=== PATIENT | female | born 1930 | race Caucasian/White ===

== ENCOUNTER → 2017-02-07 | Outpatient (CLI) | payer MEDICARE, OTHER ==
[~2017-02-07] MED LIST: ENALAPRIL MALEAT5 M1 PO; HYDROCHLOROTHIA25 M2 PO; HYDROCODONE-AP1 EAC6 PO; METOPROLOL SUCC50 MG PO; PROTONIX40 M1 PO
== END ==
LOC: M.WC 00:05
DX: T81.89XD Other complications of procedures, not elsewhere classified, subsequent encounter (principal); I10 Essential (primary) hypertension; I48.91 Unspecified atrial fibrillation; Z95.0 Presence of cardiac pacemaker; Z86.12 Personal history of poliomyelitis; Z87.891 Personal history of nicotine dependence; Z90.49 Acquired absence of other specified parts of digestive tract; Y83.8 Other surgical procedures as the cause of abnormal reaction of the patient, or of later complication, without mention of misadventure at the time of the procedure

== ENCOUNTER → 2017-02-28 | Outpatient (CLI) | payer MEDICARE, OTHER | LOC: M.WC 08:47 | DX: T81.89XD Other complications of procedures, not elsewhere classified, subsequent encounter (principal); I10 Essential (primary) hypertension; I48.91 Unspecified atrial fibrillation; L84 Corns and callosities; Z95.0 Presence of cardiac pacemaker; Z87.891 Personal history of nicotine dependence; Y83.8 Other surgical procedures as the cause of abnormal reaction of the patient, or of later complication, without mention of misadventure at the time of the procedure ==

== ENCOUNTER → 2017-03-14 | Outpatient (CLI) | payer MEDICARE, OTHER | LOC: M.WC 05:27 | DX: T81.89XD Other complications of procedures, not elsewhere classified, subsequent encounter (principal); I10 Essential (primary) hypertension; I48.91 Unspecified atrial fibrillation; Z95.0 Presence of cardiac pacemaker; Z87.891 Personal history of nicotine dependence; Y83.8 Other surgical procedures as the cause of abnormal reaction of the patient, or of later complication, without mention of misadventure at the time of the procedure ==

== ENCOUNTER → 2017-03-21 | Outpatient (CLI) | payer MEDICARE, OTHER | LOC: M.WC 01:26 | DX: T87.89 Other complications of amputation stump (principal); I10 Essential (primary) hypertension; G90.09 Other idiopathic peripheral autonomic neuropathy; I48.91 Unspecified atrial fibrillation; Z87.891 Personal history of nicotine dependence; Z90.49 Acquired absence of other specified parts of digestive tract; Z95.0 Presence of cardiac pacemaker; Z86.12 Personal history of poliomyelitis; Y83.5 Amputation of limb(s) as the cause of abnormal reaction of the patient, or of later complication, without mention of misadventure at the time of the procedure ==

== ENCOUNTER → 2017-04-04 | Outpatient (CLI) | payer MEDICARE, OTHER | LOC: M.WC 03-28 03:33 | DX: T81.89XD Other complications of procedures, not elsewhere classified, subsequent encounter (principal); G90.09 Other idiopathic peripheral autonomic neuropathy; I10 Essential (primary) hypertension; I48.91 Unspecified atrial fibrillation; Z95.0 Presence of cardiac pacemaker; Z86.12 Personal history of poliomyelitis; Z87.891 Personal history of nicotine dependence; Z90.49 Acquired absence of other specified parts of digestive tract; Y83.8 Other surgical procedures as the cause of abnormal reaction of the patient, or of later complication, without mention of misadventure at the time of the procedure ==

== ENCOUNTER → 2017-04-18 | Outpatient (CLI) | payer MEDICARE, OTHER | LOC: M.WC 02:53 | DX: T81.89XD Other complications of procedures, not elsewhere classified, subsequent encounter (principal); G90.09 Other idiopathic peripheral autonomic neuropathy; I10 Essential (primary) hypertension; I48.91 Unspecified atrial fibrillation; Z95.0 Presence of cardiac pacemaker; Z87.891 Personal history of nicotine dependence; Y83.8 Other surgical procedures as the cause of abnormal reaction of the patient, or of later complication, without mention of misadventure at the time of the procedure ==

== ENCOUNTER → 2017-04-25 | Outpatient (CLI) | payer MEDICARE, OTHER | LOC: M.WC 00:30 | DX: T81.89XD Other complications of procedures, not elsewhere classified, subsequent encounter (principal); G90.09 Other idiopathic peripheral autonomic neuropathy; I10 Essential (primary) hypertension; I48.91 Unspecified atrial fibrillation; Z95.0 Presence of cardiac pacemaker; Z87.891 Personal history of nicotine dependence; Y83.8 Other surgical procedures as the cause of abnormal reaction of the patient, or of later complication, without mention of misadventure at the time of the procedure ==

== ENCOUNTER → 2017-05-02 | Outpatient (CLI) | payer MEDICARE, OTHER | LOC: M.WC 01:43 | DX: T81.89XD Other complications of procedures, not elsewhere classified, subsequent encounter (principal); G90.09 Other idiopathic peripheral autonomic neuropathy; I10 Essential (primary) hypertension; I48.91 Unspecified atrial fibrillation; Z95.0 Presence of cardiac pacemaker; Z87.891 Personal history of nicotine dependence; Y83.8 Other surgical procedures as the cause of abnormal reaction of the patient, or of later complication, without mention of misadventure at the time of the procedure ==

== ENCOUNTER → 2017-05-09 | Outpatient (CLI) | payer MEDICARE, OTHER | LOC: M.WC 02:57 | DX: T81.89XD Other complications of procedures, not elsewhere classified, subsequent encounter (principal); G90.09 Other idiopathic peripheral autonomic neuropathy; I10 Essential (primary) hypertension; I48.91 Unspecified atrial fibrillation; Z95.0 Presence of cardiac pacemaker; Z87.891 Personal history of nicotine dependence; Y83.8 Other surgical procedures as the cause of abnormal reaction of the patient, or of later complication, without mention of misadventure at the time of the procedure ==

== ENCOUNTER → 2017-05-16 | Outpatient (CLI) | payer MEDICARE, OTHER | LOC: M.WC 03:09 | DX: T81.89XD Other complications of procedures, not elsewhere classified, subsequent encounter (principal); I10 Essential (primary) hypertension; I48.91 Unspecified atrial fibrillation; G90.09 Other idiopathic peripheral autonomic neuropathy; Z95.0 Presence of cardiac pacemaker; Z87.891 Personal history of nicotine dependence; Y83.8 Other surgical procedures as the cause of abnormal reaction of the patient, or of later complication, without mention of misadventure at the time of the procedure ==

== ENCOUNTER → 2017-05-30 | Outpatient (CLI) | payer MEDICARE, OTHER | LOC: M.WC 05-23 01:31 | DX: T81.89XD Other complications of procedures, not elsewhere classified, subsequent encounter (principal); G90.09 Other idiopathic peripheral autonomic neuropathy; I10 Essential (primary) hypertension; I48.91 Unspecified atrial fibrillation; Z95.0 Presence of cardiac pacemaker; Z87.891 Personal history of nicotine dependence; Y83.8 Other surgical procedures as the cause of abnormal reaction of the patient, or of later complication, without mention of misadventure at the time of the procedure ==

== ENCOUNTER → 2017-06-06 | Outpatient (CLI) | payer MEDICARE, OTHER | LOC: M.WC 03:34 | DX: T81.89XD Other complications of procedures, not elsewhere classified, subsequent encounter (principal); G90.09 Other idiopathic peripheral autonomic neuropathy; I10 Essential (primary) hypertension; I48.91 Unspecified atrial fibrillation; Z95.0 Presence of cardiac pacemaker; Z87.891 Personal history of nicotine dependence; Y83.8 Other surgical procedures as the cause of abnormal reaction of the patient, or of later complication, without mention of misadventure at the time of the procedure ==

== ENCOUNTER → 2017-06-13 | Outpatient (CLI) | payer MEDICARE, OTHER | LOC: M.WC 04:00 | DX: T81.89XD Other complications of procedures, not elsewhere classified, subsequent encounter (principal); I10 Essential (primary) hypertension; I48.91 Unspecified atrial fibrillation; G90.09 Other idiopathic peripheral autonomic neuropathy; Z87.891 Personal history of nicotine dependence; Z95.0 Presence of cardiac pacemaker; Y83.8 Other surgical procedures as the cause of abnormal reaction of the patient, or of later complication, without mention of misadventure at the time of the procedure ==

== ENCOUNTER → 2017-06-27 | Outpatient (CLI) | payer MEDICARE, OTHER | LOC: M.WC 02:12 | DX: T87.89 Other complications of amputation stump (principal); I10 Essential (primary) hypertension; I48.91 Unspecified atrial fibrillation; G90.09 Other idiopathic peripheral autonomic neuropathy; Z95.0 Presence of cardiac pacemaker; Z87.891 Personal history of nicotine dependence; Y83.5 Amputation of limb(s) as the cause of abnormal reaction of the patient, or of later complication, without mention of misadventure at the time of the procedure ==

== ENCOUNTER → 2017-07-25 | Outpatient (CLI) | payer MEDICARE, OTHER | LOC: M.WC 02:56 | DX: T81.89XD Other complications of procedures, not elsewhere classified, subsequent encounter (principal); G90.09 Other idiopathic peripheral autonomic neuropathy; I10 Essential (primary) hypertension; I48.91 Unspecified atrial fibrillation; Z95.0 Presence of cardiac pacemaker; Z87.891 Personal history of nicotine dependence; Y83.8 Other surgical procedures as the cause of abnormal reaction of the patient, or of later complication, without mention of misadventure at the time of the procedure ==

== ENCOUNTER → 2017-08-22 | Outpatient (CLI) | payer MEDICARE, OTHER | LOC: M.WC 03:26 | DX: T81.89XD Other complications of procedures, not elsewhere classified, subsequent encounter (principal); I10 Essential (primary) hypertension; I48.91 Unspecified atrial fibrillation; G90.09 Other idiopathic peripheral autonomic neuropathy; Z95.0 Presence of cardiac pacemaker; Z87.891 Personal history of nicotine dependence; Y83.8 Other surgical procedures as the cause of abnormal reaction of the patient, or of later complication, without mention of misadventure at the time of the procedure ==

== ENCOUNTER → 2017-09-19 | Outpatient (CLI) | payer MEDICARE, OTHER | LOC: M.WC 04:44 | DX: T81.89XD Other complications of procedures, not elsewhere classified, subsequent encounter (principal); I48.91 Unspecified atrial fibrillation; I10 Essential (primary) hypertension; G90.09 Other idiopathic peripheral autonomic neuropathy; Z95.0 Presence of cardiac pacemaker; Z87.891 Personal history of nicotine dependence; Y83.8 Other surgical procedures as the cause of abnormal reaction of the patient, or of later complication, without mention of misadventure at the time of the procedure ==

== ENCOUNTER → 2017-10-17 | Outpatient (CLI) | payer MEDICARE, OTHER | LOC: M.WC 04:43 | DX: T86.828 Other complications of skin graft (allograft) (autograft) (principal); T87.89 Other complications of amputation stump; L84 Corns and callosities; G90.09 Other idiopathic peripheral autonomic neuropathy; I10 Essential (primary) hypertension; I48.91 Unspecified atrial fibrillation; Z95.0 Presence of cardiac pacemaker; Z87.891 Personal history of nicotine dependence; Y83.5 Amputation of limb(s) as the cause of abnormal reaction of the patient, or of later complication, without mention of misadventure at the time of the procedure; Y83.2 Surgical operation with anastomosis, bypass or graft as the cause of abnormal reaction of the patient, or of later complication, without mention of misadventure at the time of the procedure ==

== ENCOUNTER → 2017-11-14 | Outpatient (CLI) | payer MEDICARE, OTHER | LOC: M.WC 04:37 | DX: T81.89XD Other complications of procedures, not elsewhere classified, subsequent encounter (principal); I10 Essential (primary) hypertension; I48.91 Unspecified atrial fibrillation; G90.09 Other idiopathic peripheral autonomic neuropathy; L84 Corns and callosities; Z95.0 Presence of cardiac pacemaker; Z87.891 Personal history of nicotine dependence; Y83.8 Other surgical procedures as the cause of abnormal reaction of the patient, or of later complication, without mention of misadventure at the time of the procedure ==

== ENCOUNTER → 2017-12-12 | Outpatient (CLI) | payer MEDICARE, OTHER | LOC: M.WC 08:18 | DX: T81.89XD Other complications of procedures, not elsewhere classified, subsequent encounter (principal); L84 Corns and callosities; G90.09 Other idiopathic peripheral autonomic neuropathy; I10 Essential (primary) hypertension; I48.91 Unspecified atrial fibrillation; Z95.0 Presence of cardiac pacemaker; Z87.891 Personal history of nicotine dependence; Y83.8 Other surgical procedures as the cause of abnormal reaction of the patient, or of later complication, without mention of misadventure at the time of the procedure ==

== ENCOUNTER → 2018-01-09 | Outpatient (CLI) | payer MEDICARE, OTHER | LOC: M.WC 05:18 | DX: T81.89XD Other complications of procedures, not elsewhere classified, subsequent encounter (principal); L84 Corns and callosities; G90.09 Other idiopathic peripheral autonomic neuropathy; I10 Essential (primary) hypertension; I48.91 Unspecified atrial fibrillation; Z95.0 Presence of cardiac pacemaker; Z87.891 Personal history of nicotine dependence; Z89.439 Acquired absence of unspecified foot; Y83.8 Other surgical procedures as the cause of abnormal reaction of the patient, or of later complication, without mention of misadventure at the time of the procedure ==

== ENCOUNTER → 2018-02-13 | Outpatient (CLI) | payer MEDICARE, OTHER | LOC: M.WC 10:30 | DX: T81.89XD Other complications of procedures, not elsewhere classified, subsequent encounter (principal); L84 Corns and callosities; G90.09 Other idiopathic peripheral autonomic neuropathy; I10 Essential (primary) hypertension; I48.91 Unspecified atrial fibrillation; Z86.12 Personal history of poliomyelitis; Z95.0 Presence of cardiac pacemaker; Z87.891 Personal history of nicotine dependence; Z89.432 Acquired absence of left foot; Y83.8 Other surgical procedures as the cause of abnormal reaction of the patient, or of later complication, without mention of misadventure at the time of the procedure ==

== ENCOUNTER → 2018-03-13 | Outpatient (CLI) | payer MEDICARE, OTHER | LOC: M.WC 04:46 | DX: T81.89XD Other complications of procedures, not elsewhere classified, subsequent encounter (principal); L84 Corns and callosities; G90.09 Other idiopathic peripheral autonomic neuropathy; I10 Essential (primary) hypertension; I48.91 Unspecified atrial fibrillation; Z95.0 Presence of cardiac pacemaker; Z87.891 Personal history of nicotine dependence; Z86.12 Personal history of poliomyelitis; Y83.8 Other surgical procedures as the cause of abnormal reaction of the patient, or of later complication, without mention of misadventure at the time of the procedure ==

== ENCOUNTER → 2018-04-10 | Outpatient (CLI) | payer MEDICARE, OTHER | LOC: M.WC 04:30 | DX: T81.89XD Other complications of procedures, not elsewhere classified, subsequent encounter (principal); L84 Corns and callosities; G90.09 Other idiopathic peripheral autonomic neuropathy; I10 Essential (primary) hypertension; I48.91 Unspecified atrial fibrillation; Z87.891 Personal history of nicotine dependence; Z95.0 Presence of cardiac pacemaker; Z86.12 Personal history of poliomyelitis; Z89.432 Acquired absence of left foot; Y83.8 Other surgical procedures as the cause of abnormal reaction of the patient, or of later complication, without mention of misadventure at the time of the procedure ==

== ENCOUNTER → 2018-05-08 | Outpatient (CLI) | payer MEDICARE, OTHER | LOC: M.WC 05:34 | DX: T87.89 Other complications of amputation stump (principal); L89.323 Pressure ulcer of left buttock, stage 3; L84 Corns and callosities; G90.09 Other idiopathic peripheral autonomic neuropathy; I10 Essential (primary) hypertension; I48.91 Unspecified atrial fibrillation; Z86.12 Personal history of poliomyelitis; Z95.0 Presence of cardiac pacemaker; Z87.891 Personal history of nicotine dependence; Y83.5 Amputation of limb(s) as the cause of abnormal reaction of the patient, or of later complication, without mention of misadventure at the time of the procedure ==

== ENCOUNTER → 2018-06-12 | Outpatient (CLI) | payer MEDICARE, OTHER | LOC: M.WC 06-11 10:30 | DX: T81.89XD Other complications of procedures, not elsewhere classified, subsequent encounter (principal); G90.09 Other idiopathic peripheral autonomic neuropathy; I10 Essential (primary) hypertension; I48.91 Unspecified atrial fibrillation; L84 Corns and callosities; Z95.0 Presence of cardiac pacemaker; Z87.891 Personal history of nicotine dependence; Z86.12 Personal history of poliomyelitis; Y83.8 Other surgical procedures as the cause of abnormal reaction of the patient, or of later complication, without mention of misadventure at the time of the procedure ==

== ENCOUNTER → 2018-07-17 | Outpatient (CLI) | payer MEDICARE, OTHER | LOC: M.WC 05:11 | DX: T81.89XD Other complications of procedures, not elsewhere classified, subsequent encounter (principal); I10 Essential (primary) hypertension; L84 Corns and callosities; I48.91 Unspecified atrial fibrillation; G90.09 Other idiopathic peripheral autonomic neuropathy; Z87.891 Personal history of nicotine dependence; Z95.0 Presence of cardiac pacemaker; Y83.8 Other surgical procedures as the cause of abnormal reaction of the patient, or of later complication, without mention of misadventure at the time of the procedure ==

== ENCOUNTER → 2018-10-16 | Outpatient (CLI) | payer MEDICARE, OTHER | LOC: M.WC 04:36 | DX: T81.89XD Other complications of procedures, not elsewhere classified, subsequent encounter (principal); L84 Corns and callosities; G90.09 Other idiopathic peripheral autonomic neuropathy; I10 Essential (primary) hypertension; I48.91 Unspecified atrial fibrillation; Z95.0 Presence of cardiac pacemaker; Z87.891 Personal history of nicotine dependence; Z86.12 Personal history of poliomyelitis; Y83.8 Other surgical procedures as the cause of abnormal reaction of the patient, or of later complication, without mention of misadventure at the time of the procedure ==

== ENCOUNTER → 2018-11-20 | Outpatient (CLI) | payer MEDICARE, OTHER | LOC: M.WC 11-13 10:30 | DX: T81.89XD Other complications of procedures, not elsewhere classified, subsequent encounter (principal); G90.09 Other idiopathic peripheral autonomic neuropathy; I10 Essential (primary) hypertension; I48.91 Unspecified atrial fibrillation; Z95.0 Presence of cardiac pacemaker; Z87.891 Personal history of nicotine dependence; Y83.8 Other surgical procedures as the cause of abnormal reaction of the patient, or of later complication, without mention of misadventure at the time of the procedure ==

== ENCOUNTER → 2018-12-18 | Outpatient (CLI) | payer MEDICARE, OTHER | LOC: M.WC 04:22 | DX: T81.89XD Other complications of procedures, not elsewhere classified, subsequent encounter (principal); G90.09 Other idiopathic peripheral autonomic neuropathy; I10 Essential (primary) hypertension; I48.91 Unspecified atrial fibrillation; Z95.0 Presence of cardiac pacemaker; Z87.891 Personal history of nicotine dependence; Z86.12 Personal history of poliomyelitis; Y83.8 Other surgical procedures as the cause of abnormal reaction of the patient, or of later complication, without mention of misadventure at the time of the procedure ==

== ENCOUNTER → 2019-02-05 | Outpatient (CLI) | payer MEDICARE, OTHER | LOC: M.WC 04:34 | DX: T81.89XD Other complications of procedures, not elsewhere classified, subsequent encounter (principal); S91.302D Unspecified open wound, left foot, subsequent encounter; G90.09 Other idiopathic peripheral autonomic neuropathy; I10 Essential (primary) hypertension; I48.91 Unspecified atrial fibrillation; Z95.0 Presence of cardiac pacemaker; Z87.891 Personal history of nicotine dependence; Z79.01 Long term (current) use of anticoagulants; Z89.432 Acquired absence of left foot; Y83.8 Other surgical procedures as the cause of abnormal reaction of the patient, or of later complication, without mention of misadventure at the time of the procedure; X58.XXXD Exposure to other specified factors, subsequent encounter ==

== ENCOUNTER → 2019-03-05 | Outpatient (CLI) | payer MEDICARE, OTHER | LOC: M.WC 10:19 | DX: T81.89XD Other complications of procedures, not elsewhere classified, subsequent encounter (principal); L84 Corns and callosities; G90.09 Other idiopathic peripheral autonomic neuropathy; I10 Essential (primary) hypertension; I48.91 Unspecified atrial fibrillation; Z87.891 Personal history of nicotine dependence; Z86.12 Personal history of poliomyelitis; Z95.0 Presence of cardiac pacemaker; Y83.8 Other surgical procedures as the cause of abnormal reaction of the patient, or of later complication, without mention of misadventure at the time of the procedure ==

== ENCOUNTER → 2019-04-02 | Outpatient (CLI) | payer MEDICARE, OTHER | LOC: M.WC 03:57 | DX: T81.89XD Other complications of procedures, not elsewhere classified, subsequent encounter (principal); L84 Corns and callosities; G90.09 Other idiopathic peripheral autonomic neuropathy; I10 Essential (primary) hypertension; I48.91 Unspecified atrial fibrillation; Z87.891 Personal history of nicotine dependence; Z86.12 Personal history of poliomyelitis; Z95.0 Presence of cardiac pacemaker; Y83.8 Other surgical procedures as the cause of abnormal reaction of the patient, or of later complication, without mention of misadventure at the time of the procedure ==

== ENCOUNTER → 2019-05-28 | Outpatient (CLI) | payer MEDICARE, OTHER | LOC: M.WC 04:26 | DX: T81.89XD Other complications of procedures, not elsewhere classified, subsequent encounter (principal); G90.09 Other idiopathic peripheral autonomic neuropathy; I48.91 Unspecified atrial fibrillation; I10 Essential (primary) hypertension; Z95.0 Presence of cardiac pacemaker; Z87.891 Personal history of nicotine dependence; Z86.12 Personal history of poliomyelitis; Y83.8 Other surgical procedures as the cause of abnormal reaction of the patient, or of later complication, without mention of misadventure at the time of the procedure ==

== ENCOUNTER → 2019-06-04 | Outpatient (CLI) | payer MEDICARE, OTHER | LOC: M.WC 04:33 | DX: T81.89XD Other complications of procedures, not elsewhere classified, subsequent encounter (principal); L84 Corns and callosities; G90.09 Other idiopathic peripheral autonomic neuropathy; I10 Essential (primary) hypertension; I48.91 Unspecified atrial fibrillation; Z87.891 Personal history of nicotine dependence; Z95.0 Presence of cardiac pacemaker; Z86.12 Personal history of poliomyelitis; Y83.8 Other surgical procedures as the cause of abnormal reaction of the patient, or of later complication, without mention of misadventure at the time of the procedure ==

== ENCOUNTER → 2019-06-11 | Outpatient (CLI) | payer MEDICARE, OTHER | LOC: M.WC 03:08 | DX: T81.89XD Other complications of procedures, not elsewhere classified, subsequent encounter (principal); L84 Corns and callosities; G90.09 Other idiopathic peripheral autonomic neuropathy; I10 Essential (primary) hypertension; I48.91 Unspecified atrial fibrillation; Z86.12 Personal history of poliomyelitis; Z95.0 Presence of cardiac pacemaker; Z87.891 Personal history of nicotine dependence; Y83.8 Other surgical procedures as the cause of abnormal reaction of the patient, or of later complication, without mention of misadventure at the time of the procedure ==

== ENCOUNTER → 2019-06-18 | Outpatient (CLI) | payer MEDICARE, OTHER | LOC: M.WC 05:21 | DX: T81.89XD Other complications of procedures, not elsewhere classified, subsequent encounter (principal); L84 Corns and callosities; G90.09 Other idiopathic peripheral autonomic neuropathy; I10 Essential (primary) hypertension; I48.91 Unspecified atrial fibrillation; Z95.0 Presence of cardiac pacemaker; Z86.12 Personal history of poliomyelitis; Z87.891 Personal history of nicotine dependence; Y83.8 Other surgical procedures as the cause of abnormal reaction of the patient, or of later complication, without mention of misadventure at the time of the procedure ==

== ENCOUNTER → 2019-06-25 | Outpatient (CLI) | payer MEDICARE, OTHER | LOC: M.WC 04:56 | DX: T81.89XD Other complications of procedures, not elsewhere classified, subsequent encounter (principal); L84 Corns and callosities; G90.09 Other idiopathic peripheral autonomic neuropathy; I10 Essential (primary) hypertension; I48.91 Unspecified atrial fibrillation; Z95.0 Presence of cardiac pacemaker; Z87.891 Personal history of nicotine dependence; Z86.12 Personal history of poliomyelitis; Y83.8 Other surgical procedures as the cause of abnormal reaction of the patient, or of later complication, without mention of misadventure at the time of the procedure ==

== ENCOUNTER → 2019-07-02 | Outpatient (CLI) | payer MEDICARE, OTHER | LOC: M.WC 04:16 | DX: T81.89XD Other complications of procedures, not elsewhere classified, subsequent encounter (principal); G90.09 Other idiopathic peripheral autonomic neuropathy; L84 Corns and callosities; I48.91 Unspecified atrial fibrillation; I10 Essential (primary) hypertension; Z86.12 Personal history of poliomyelitis; Z79.01 Long term (current) use of anticoagulants; Z95.0 Presence of cardiac pacemaker; Y83.8 Other surgical procedures as the cause of abnormal reaction of the patient, or of later complication, without mention of misadventure at the time of the procedure ==

== ENCOUNTER 2019-07-18 15:38 | Inpatient (IN) | payer MEDICARE, OTHER ==
[~2019-07-18] VITALS: Ht 157.5 cm; Wt 76.2 kg
[~2019-07-18 15:38] MED LIST changes: -HYDROCODONE-AP1 EAC6 PO; +NORCO 5-325 TA1 EAC2 PO
[2019-07-18 15:49] VITALS: BP 154/76
[2019-07-18] MEDS ORDERED: XARELTO15 MG PO (15:57)
[2019-07-18] MEDS ORDERED: BACTRIM DS TAB1 EAC1 PO (16:01)
[2019-07-18] MEDS ORDERED: DORYX MPC120 MG PO (16:01)
[2019-07-18 16:39] LABS: ABSOLUTE BASOPHILS 0.1 thou/uL (0.0-0.2); ABSOLUTE EOSINOPHILS 0.1 thou/uL (0.0-0.7); ABSOLUTE LYMPHOCYTES 2.8 thou/uL (0.8-5.3); ABSOLUTE MONOCYTES 0.6 thou/uL (0.0-1.2); ABSOLUTE NEUTROPHILS 4.5 thou/uL (1.6-8.1); BASOPHILS 1.4 %; EOSINOPHILS 0.8 %; LYMPHOCYTES 34.3 %; MCH 32.1 pg (26.0-34.0); MCHC 33.3 g/dL (28.0-37.0); MCV 96.6 fL (80.0-100.0); MONOCYTES 7.4 %; MPV 8.7 fl. (7.2-11.1); NUCLEATED RBCS 0 /100WBC; PLATELET COUNT* 221 thou/uL (150-400); POLYS 56.1 %; RBC 3.73 mil/uL (4.20-5.00); RDW-CV 15.3 % (10.5-14.5)
[2019-07-18 16:47] LABS: CALCIUM 8.2 mg/dL (8.5-10.1); CREATININE 1.1 mg/dL (0.6-1.3); POTASSIUM 4.1 mmol/L (3.5-5.1)
[2019-07-18 16:49] LABS: APTT 25.8 Seconds (25.0-31.3); INR 1.2
[2019-07-18 16:57] LABS: ALBUMIN 3.6 g/dL (3.4-5.0); TOTAL BILIRUBIN 0.5 mg/dL (<0.1-1.0); TOTAL PROTEIN 7.4 g/dL (6.4-8.2)
[2019-07-18 19:34] VITALS: BP 154/70
[2019-07-18 20:00] VITALS: BP 170/85
--- NOTE | 2019-07-18 23:51 | NUR ---
ALERT AND ORIENTED X 4 FEMALE ADMITTED TO BED 119 FROM ER AT 1999 IN STABLE CONDITION. ORIENTED TO ROOM, BED, CALL LIGHT, TV REMOTE AND ROUTINES. ADMISSION ROUTINES IN PROGRESS. CONTINUE TO MONITOR.
[2019-07-19] VITALS: BP 152/56
--- NOTE | 2019-07-19 03:07 | NUR ---
PATIENT HAS REMAINED ALERT AND ORIENTED X 4 THOUGHOUT THE SHIFT AND RESTING QUIETLY ON HOURLY ROUNDS. UP TO BSC WITH MIN ASSIST OF ONE. PATIENT IS INDEPENDENT IN HER APARTMENT WITH TRANSFER INTO WHEELCHAIR AND WHEELCHAIR TO TOILET OR SHOWER CHAIR, BUT, SET-UP IN HOSPITAL IS A BIT LESS FAMILIAR. HAS DENIED NEED FOR PAIN MEDICATION. HOME MEDS RESUMED AVAILABLE. ANTIBIOTICS PER ORDER. CONTINUE TO MONITOR.
[2019-07-19 04:03] VITALS: BP 114/63
--- NOTE | 2019-07-19 05:59 | NUR ---
NO CHANGE FROM PREVIOUS ENTRY.
[2019-07-19 07:35] VITALS: BP 154/66
--- NOTE | 2019-07-19 10:00 | NUR ---
SPOKE WITH PT. SHE WAS ALERT AND ORIENTED. STATED SHE LIVES ALONE AT THE [facility]. SHE DOES NOT WALK BUT CAN TRANSFER INDEPENDENTLY IN AND OUT OF . HER ABOUT 6 MONTHS AGO. SHE HAS 7 CHILDREN. THEY ALL BRING FOOD TO HER, CASSEROLES, ETC THAT SHE CAN WARM UP. THEY DRIVE HER TO OR ON ERRANDS. SON,SHI IS HER DPOA.
[2019-07-19 17:20] VITALS: BP 160/68
--- NOTE | 2019-07-19 17:36 | NUR ---
PT REMAINED ALERT AND ORIENTED. PT RESTING IN BED AND UP TO CHAIR. PT C/O NAUSEA, MEDS GIVEN ORDERED. FALL RISK PRECAUTIONS IN PLACE. HOURLY ROUNDING COMPLETED. WILL CONTINUE TO MONITOR.
[2019-07-19 20:55] VITALS: BP 150/68
--- NOTE | 2019-07-20 05:23 | NUR ---
PATIENT HAS REMAINED ALERT AND ORIENTED X 4. PATIENT DOES TEND TO REPEAT HERSELF IN THE COURSE OF THE SHIFT. USING CALL LIGHT APPROPRIATELY. FALL PRECAUTIONS IN PLACE. VITAL SIGNS STABLE WITH HYPERTENSION. DRESSING RIGHT MIDDLE FINGER CLEAN AND DRY. 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 MEDS AND IVF'S PER ORDER. HAS NOT REQUIRED ANYTHING FOR PAIN OF THIS WRITING. TRANSFERING IN MIN/MOD ASSIST TO BSC. DOES APPEAR SOA WITH EXERTION. THIS RESOLVES QUICKLY. MEDS/ANTIBIOTICS PER ORDER. CONTINUE TO MONITOR.
[2019-07-20 08:03] VITALS: BP 170/100
--- NOTE | 2019-07-20 17:43 | NUR ---
PT A&Ox4. VITALS STABLE. IV PATENT, SL. UP WITH STB, PIVOT TO WHEELCHAIR AND TOILET. PAIN CONTROLLED WITH NORCO. DRESSING C/D/I. FALL PRECAUTIONS IN PLACE. CALL LIGHT WITHIN REACH. WILL CONTINUE TO MONITOR.
[2019-07-20 20:15] VITALS: BP 147/65
--- NOTE | 2019-07-21 04:12 | NUR ---
PT A&OX4, ON ROOM AIR, VSS, PT UP TO BR WITH ASSIST, DRSG TO RT HAND C/D/I. MRSA (PCR) NEGATIVE, PT TAKEN OFF CONTACT PRECAUTIONS. NO C/O PAIN THIS SHIFT. WILL CONTINUE WITH PLAN OF CARE.
[2019-07-21 07:20] VITALS: BP 175/76
[2019-07-21 08:56] VITALS: BP 175/76
[2019-07-21 13:07] VITALS: BP 175/76
[2019-07-21] MEDS ORDERED: MITIGARE0.6 MG PO (13:07)
[2019-07-21] MEDS ORDERED: PROBIOTIC1 EAC7 PO (13:07)
[2019-07-21] MEDS ORDERED: CLEOCIN HCL300 MG PO (13:25)
--- NOTE | 2019-07-21 13:49 | NUR ---
PT GIVEN DISCHARGE INFORMATION, CARE NOTES, AND PRESCRIPTIONS. IV REMOVED. WOUND PICTURES TAKEN. PT DRESSED AND BELONGINGS GATHERED. FALL RISK PRECAUTIONS IN PLACE. HOURLY ROUNDING COMPLETED. PT LEFT VIA WHEELCHAIR WITH NURSING STAFF TO HOME.
[2019-07-21 13:55] VITALS: BP 175/76
== END 2019-07-21 13:55 | disposition home or self-care (01) | DRG 603 ==
LOC: M.ERS 15:38 → M.ORTHSURG 17:47 → M.TBA-ER 17:47 → M.ORTHSURG 20:00
PROVIDERS: Nurse Practitioner Family; ADMIT Internal Medicine; ATTEND Internal Medicine
DX: L03.011 Cellulitis of right finger (principal); L02.511 Cutaneous abscess of right hand; K21.9 Gastro-esophageal reflux disease without esophagitis; M1A.0411 Idiopathic chronic gout, right hand, with tophus (tophi); I10 Essential (primary) hypertension; Z79.01 Long term (current) use of anticoagulants; Z95.0 Presence of cardiac pacemaker; Z79.899 Other long term (current) drug therapy; Z86.718 Personal history of other venous thrombosis and embolism; Z86.711 Personal history of pulmonary embolism; Z86.73 Personal history of transient ischemic attack (TIA), and cerebral infarction without residual deficits; Z87.891 Personal history of nicotine dependence

== ENCOUNTER → 2019-10-08 | Outpatient (CLI) | payer MEDICARE, OTHER ==
[~2019-10-08] MED LIST changes: +BACTRIM DS TAB1 EAC1 PO; +CLEOCIN HCL300 MG PO; +DORYX MPC120 MG PO; +MITIGARE0.6 MG PO; +PROBIOTIC1 EAC7 PO; +XARELTO15 MG PO
== END ==
LOC: M.WC 03:52
PROVIDERS: ATTEND Emergency Medicine Undersea and Hyperbaric Medicine
DX: T81.89XD Other complications of procedures, not elsewhere classified, subsequent encounter (principal); L89.892 Pressure ulcer of other site, stage 2; L84 Corns and callosities; G90.09 Other idiopathic peripheral autonomic neuropathy; I10 Essential (primary) hypertension; I48.91 Unspecified atrial fibrillation; Z95.0 Presence of cardiac pacemaker; Z86.12 Personal history of poliomyelitis; Z87.891 Personal history of nicotine dependence; Z90.49 Acquired absence of other specified parts of digestive tract; Y83.8 Other surgical procedures as the cause of abnormal reaction of the patient, or of later complication, without mention of misadventure at the time of the procedure

== ENCOUNTER → 2019-10-17 | Outpatient (CLI) | payer MEDICARE, OTHER | LOC: M.WC 00:39 | PROVIDERS: ATTEND Family Medicine | DX: L89.892 Pressure ulcer of other site, stage 2 (principal); S91.302A Unspecified open wound, left foot, initial encounter; L84 Corns and callosities; I73.9 Peripheral vascular disease, unspecified; G90.09 Other idiopathic peripheral autonomic neuropathy; I10 Essential (primary) hypertension; I48.91 Unspecified atrial fibrillation; Z79.01 Long term (current) use of anticoagulants; Z89.422 Acquired absence of other left toe(s); Z95.0 Presence of cardiac pacemaker; Z86.12 Personal history of poliomyelitis; Z87.891 Personal history of nicotine dependence; X58.XXXA Exposure to other specified factors, initial encounter; Y93.89 Activity, other specified; Y92.89 Other specified places as the place of occurrence of the external cause; Y99.8 Other external cause status ==

== ENCOUNTER → 2019-10-22 | Outpatient (CLI) | payer MEDICARE, OTHER | LOC: M.WC 04:06 | PROVIDERS: ATTEND Family Medicine | DX: L89.892 Pressure ulcer of other site, stage 2 (principal); S91.302D Unspecified open wound, left foot, subsequent encounter; G90.09 Other idiopathic peripheral autonomic neuropathy; I10 Essential (primary) hypertension; I48.91 Unspecified atrial fibrillation; I73.9 Peripheral vascular disease, unspecified; Z86.12 Personal history of poliomyelitis; Z95.0 Presence of cardiac pacemaker; Z89.422 Acquired absence of other left toe(s); Z87.891 Personal history of nicotine dependence; X58.XXXD Exposure to other specified factors, subsequent encounter ==

== ENCOUNTER → 2019-10-29 | Outpatient (CLI) | payer MEDICARE, OTHER | LOC: M.WC 03:31 | PROVIDERS: ATTEND Emergency Medicine Undersea and Hyperbaric Medicine | DX: L89.892 Pressure ulcer of other site, stage 2 (principal); S91.302D Unspecified open wound, left foot, subsequent encounter; I73.9 Peripheral vascular disease, unspecified; I10 Essential (primary) hypertension; I48.91 Unspecified atrial fibrillation; Z87.891 Personal history of nicotine dependence; Z95.0 Presence of cardiac pacemaker; Z86.12 Personal history of poliomyelitis; X58.XXXD Exposure to other specified factors, subsequent encounter ==

== ENCOUNTER → 2019-11-05 | Outpatient (CLI) | payer MEDICARE, OTHER | LOC: M.WC 05:12 | PROVIDERS: ATTEND Emergency Medicine Undersea and Hyperbaric Medicine | DX: L89.892 Pressure ulcer of other site, stage 2 (principal); S91.302D Unspecified open wound, left foot, subsequent encounter; I73.9 Peripheral vascular disease, unspecified; I10 Essential (primary) hypertension; I48.91 Unspecified atrial fibrillation; G90.09 Other idiopathic peripheral autonomic neuropathy; Z95.0 Presence of cardiac pacemaker; Z87.891 Personal history of nicotine dependence; Z86.12 Personal history of poliomyelitis; X58.XXXD Exposure to other specified factors, subsequent encounter ==

== ENCOUNTER → 2019-11-12 | Outpatient (CLI) | payer MEDICARE, OTHER | LOC: M.WC 05:26 | PROVIDERS: ATTEND Emergency Medicine Undersea and Hyperbaric Medicine | DX: L89.892 Pressure ulcer of other site, stage 2 (principal); S91.302D Unspecified open wound, left foot, subsequent encounter; L84 Corns and callosities; G90.09 Other idiopathic peripheral autonomic neuropathy; I73.9 Peripheral vascular disease, unspecified; I10 Essential (primary) hypertension; I48.91 Unspecified atrial fibrillation; Z95.0 Presence of cardiac pacemaker; Z86.12 Personal history of poliomyelitis; Z87.891 Personal history of nicotine dependence; Z89.422 Acquired absence of other left toe(s); X58.XXXD Exposure to other specified factors, subsequent encounter ==

== ENCOUNTER → 2019-11-26 | Outpatient (CLI) | payer MEDICARE, OTHER | LOC: M.WC 09:10 | PROVIDERS: ATTEND Emergency Medicine Undersea and Hyperbaric Medicine | DX: L89.893 Pressure ulcer of other site, stage 3 (principal); L84 Corns and callosities; I73.9 Peripheral vascular disease, unspecified; I10 Essential (primary) hypertension; I48.91 Unspecified atrial fibrillation; G90.09 Other idiopathic peripheral autonomic neuropathy; Z95.0 Presence of cardiac pacemaker; Z87.891 Personal history of nicotine dependence; Z86.12 Personal history of poliomyelitis ==

== ENCOUNTER → 2019-12-03 | Outpatient (CLI) | payer MEDICARE, OTHER | LOC: M.WC 00:41 | PROVIDERS: ATTEND Emergency Medicine Undersea and Hyperbaric Medicine | DX: L89.893 Pressure ulcer of other site, stage 3 (principal); L84 Corns and callosities; I73.9 Peripheral vascular disease, unspecified; I10 Essential (primary) hypertension; I48.91 Unspecified atrial fibrillation; G90.09 Other idiopathic peripheral autonomic neuropathy; Z95.0 Presence of cardiac pacemaker; Z87.891 Personal history of nicotine dependence; Z86.12 Personal history of poliomyelitis ==

== ENCOUNTER → 2020-01-21 | Outpatient (CLI) | payer MEDICARE, OTHER | LOC: M.WC 10:00 | PROVIDERS: ATTEND Emergency Medicine Undersea and Hyperbaric Medicine | DX: L89.893 Pressure ulcer of other site, stage 3 (principal); S90.812A Abrasion, left foot, initial encounter; L84 Corns and callosities; G90.09 Other idiopathic peripheral autonomic neuropathy; I10 Essential (primary) hypertension; I48.91 Unspecified atrial fibrillation; I73.9 Peripheral vascular disease, unspecified; Z95.0 Presence of cardiac pacemaker; Z86.12 Personal history of poliomyelitis; Z87.891 Personal history of nicotine dependence; X58.XXXA Exposure to other specified factors, initial encounter; Y93.89 Activity, other specified; Y92.89 Other specified places as the place of occurrence of the external cause; Y99.8 Other external cause status ==

== ENCOUNTER → 2020-02-18 | Outpatient (CLI) | payer MEDICARE | LOC: M.WC 10:21 | PROVIDERS: ATTEND Emergency Medicine Undersea and Hyperbaric Medicine | DX: L89.893 Pressure ulcer of other site, stage 3 (principal); L97.521 Non-pressure chronic ulcer of other part of left foot limited to breakdown of skin; S90.812D Abrasion, left foot, subsequent encounter; L84 Corns and callosities; G90.09 Other idiopathic peripheral autonomic neuropathy; I10 Essential (primary) hypertension; I48.91 Unspecified atrial fibrillation; I73.9 Peripheral vascular disease, unspecified; Z95.0 Presence of cardiac pacemaker; Z86.12 Personal history of poliomyelitis; Z87.891 Personal history of nicotine dependence; X58.XXXD Exposure to other specified factors, subsequent encounter ==

== ENCOUNTER → 2020-03-31 | Outpatient (CLI) | payer MEDICARE | LOC: M.WC 03-17 10:30 | PROVIDERS: ATTEND Emergency Medicine Undersea and Hyperbaric Medicine | DX: L89.893 Pressure ulcer of other site, stage 3 (principal); L97.521 Non-pressure chronic ulcer of other part of left foot limited to breakdown of skin; S90.812D Abrasion, left foot, subsequent encounter; L84 Corns and callosities; G90.09 Other idiopathic peripheral autonomic neuropathy; I10 Essential (primary) hypertension; I48.91 Unspecified atrial fibrillation; I73.9 Peripheral vascular disease, unspecified; Z95.0 Presence of cardiac pacemaker; Z86.12 Personal history of poliomyelitis; Z87.891 Personal history of nicotine dependence; X58.XXXD Exposure to other specified factors, subsequent encounter ==

== ENCOUNTER → 2020-04-28 | Outpatient (CLI) | payer MEDICARE | LOC: M.WC 10:17 | PROVIDERS: ATTEND Emergency Medicine Undersea and Hyperbaric Medicine | DX: L89.893 Pressure ulcer of other site, stage 3 (principal); L97.521 Non-pressure chronic ulcer of other part of left foot limited to breakdown of skin; S90.812D Abrasion, left foot, subsequent encounter; L84 Corns and callosities; G90.09 Other idiopathic peripheral autonomic neuropathy; I10 Essential (primary) hypertension; I48.91 Unspecified atrial fibrillation; I73.9 Peripheral vascular disease, unspecified; Z95.0 Presence of cardiac pacemaker; Z86.12 Personal history of poliomyelitis; Z87.891 Personal history of nicotine dependence; X58.XXXD Exposure to other specified factors, subsequent encounter ==

== ENCOUNTER → 2020-05-26 | Outpatient (CLI) | payer MEDICARE | LOC: M.WC 10:15 | PROVIDERS: ATTEND Emergency Medicine Undersea and Hyperbaric Medicine | DX: L89.893 Pressure ulcer of other site, stage 3 (principal); L97.522 Non-pressure chronic ulcer of other part of left foot with fat layer exposed; L84 Corns and callosities; G90.09 Other idiopathic peripheral autonomic neuropathy; I10 Essential (primary) hypertension; I48.91 Unspecified atrial fibrillation; I73.9 Peripheral vascular disease, unspecified; Z95.0 Presence of cardiac pacemaker; Z86.12 Personal history of poliomyelitis; Z87.891 Personal history of nicotine dependence ==

== ENCOUNTER → 2020-06-02 | Outpatient (CLI) | payer MEDICARE | LOC: M.WC 09:28 | PROVIDERS: ATTEND Emergency Medicine Undersea and Hyperbaric Medicine | DX: L89.893 Pressure ulcer of other site, stage 3 (principal); L97.522 Non-pressure chronic ulcer of other part of left foot with fat layer exposed; L84 Corns and callosities; G90.09 Other idiopathic peripheral autonomic neuropathy; I10 Essential (primary) hypertension; I48.91 Unspecified atrial fibrillation; I73.9 Peripheral vascular disease, unspecified; Z95.0 Presence of cardiac pacemaker; Z86.12 Personal history of poliomyelitis; Z87.891 Personal history of nicotine dependence ==

== ENCOUNTER → 2020-06-09 | Outpatient (CLI) | payer MEDICARE | LOC: M.WC 10:19 | PROVIDERS: ATTEND Emergency Medicine Undersea and Hyperbaric Medicine | DX: L89.893 Pressure ulcer of other site, stage 3 (principal); L97.522 Non-pressure chronic ulcer of other part of left foot with fat layer exposed; L84 Corns and callosities; G90.09 Other idiopathic peripheral autonomic neuropathy; I10 Essential (primary) hypertension; I48.91 Unspecified atrial fibrillation; I73.9 Peripheral vascular disease, unspecified; Z95.0 Presence of cardiac pacemaker; Z86.12 Personal history of poliomyelitis; Z87.891 Personal history of nicotine dependence ==

== ENCOUNTER → 2020-06-16 | Outpatient (CLI) | payer MEDICARE | LOC: M.WC 09:51 | PROVIDERS: ATTEND Emergency Medicine Undersea and Hyperbaric Medicine | DX: L89.893 Pressure ulcer of other site, stage 3 (principal); L97.522 Non-pressure chronic ulcer of other part of left foot with fat layer exposed; L84 Corns and callosities; G90.09 Other idiopathic peripheral autonomic neuropathy; I10 Essential (primary) hypertension; I48.91 Unspecified atrial fibrillation; I73.89 Other specified peripheral vascular diseases; Z95.0 Presence of cardiac pacemaker; Z86.12 Personal history of poliomyelitis; Z87.891 Personal history of nicotine dependence ==

== ENCOUNTER → 2020-06-23 | Outpatient (CLI) | payer MEDICARE | LOC: M.WC 08:59 | PROVIDERS: ATTEND Emergency Medicine Undersea and Hyperbaric Medicine | DX: L89.893 Pressure ulcer of other site, stage 3 (principal); L97.522 Non-pressure chronic ulcer of other part of left foot with fat layer exposed; L84 Corns and callosities; G90.09 Other idiopathic peripheral autonomic neuropathy; I10 Essential (primary) hypertension; I48.91 Unspecified atrial fibrillation; I73.89 Other specified peripheral vascular diseases; Z95.0 Presence of cardiac pacemaker; Z86.12 Personal history of poliomyelitis; Z87.891 Personal history of nicotine dependence ==

== ENCOUNTER → 2020-06-30 | Outpatient (CLI) | payer MEDICARE | LOC: M.RAD 09:59 → M.WC 09:59 | PROVIDERS: ATTEND Emergency Medicine Undersea and Hyperbaric Medicine | DX: L89.893 Pressure ulcer of other site, stage 3 (principal); L97.521 Non-pressure chronic ulcer of other part of left foot limited to breakdown of skin; G90.09 Other idiopathic peripheral autonomic neuropathy; I10 Essential (primary) hypertension; I48.91 Unspecified atrial fibrillation; I73.89 Other specified peripheral vascular diseases; Z95.0 Presence of cardiac pacemaker; Z86.12 Personal history of poliomyelitis; Z87.891 Personal history of nicotine dependence ==

== ENCOUNTER → 2020-07-07 | Outpatient (CLI) | payer MEDICARE | LOC: M.WC 10:36 | PROVIDERS: ATTEND Emergency Medicine Undersea and Hyperbaric Medicine | DX: L89.893 Pressure ulcer of other site, stage 3 (principal); L97.522 Non-pressure chronic ulcer of other part of left foot with fat layer exposed; G90.09 Other idiopathic peripheral autonomic neuropathy; I10 Essential (primary) hypertension; I48.91 Unspecified atrial fibrillation; I73.89 Other specified peripheral vascular diseases; Z95.0 Presence of cardiac pacemaker; Z86.12 Personal history of poliomyelitis; Z87.891 Personal history of nicotine dependence ==

== ENCOUNTER → 2020-07-14 | Outpatient (CLI) | payer MEDICARE | LOC: M.WC 09:00 | PROVIDERS: ATTEND Emergency Medicine Undersea and Hyperbaric Medicine | DX: L89.893 Pressure ulcer of other site, stage 3 (principal); L97.521 Non-pressure chronic ulcer of other part of left foot limited to breakdown of skin; G90.09 Other idiopathic peripheral autonomic neuropathy; I10 Essential (primary) hypertension; I48.91 Unspecified atrial fibrillation; I73.89 Other specified peripheral vascular diseases; Z95.0 Presence of cardiac pacemaker; Z86.12 Personal history of poliomyelitis; Z87.891 Personal history of nicotine dependence ==

== ENCOUNTER → 2020-07-21 | Outpatient (CLI) | payer MEDICARE | LOC: M.WC 09:20 | PROVIDERS: ATTEND Emergency Medicine Undersea and Hyperbaric Medicine | DX: L89.893 Pressure ulcer of other site, stage 3 (principal); L97.521 Non-pressure chronic ulcer of other part of left foot limited to breakdown of skin; L84 Corns and callosities; G90.09 Other idiopathic peripheral autonomic neuropathy; I10 Essential (primary) hypertension; I48.91 Unspecified atrial fibrillation; I73.89 Other specified peripheral vascular diseases; Z95.0 Presence of cardiac pacemaker; Z86.12 Personal history of poliomyelitis; Z87.891 Personal history of nicotine dependence ==

== ENCOUNTER → 2020-07-28 | Outpatient (CLI) | payer MEDICARE | LOC: M.WC 09:15 | PROVIDERS: ATTEND Emergency Medicine Undersea and Hyperbaric Medicine | DX: L89.893 Pressure ulcer of other site, stage 3 (principal); L97.521 Non-pressure chronic ulcer of other part of left foot limited to breakdown of skin; L84 Corns and callosities; G90.09 Other idiopathic peripheral autonomic neuropathy; I10 Essential (primary) hypertension; I48.91 Unspecified atrial fibrillation; I73.89 Other specified peripheral vascular diseases; Z95.0 Presence of cardiac pacemaker; Z86.12 Personal history of poliomyelitis; Z87.891 Personal history of nicotine dependence ==

== ENCOUNTER → 2020-08-04 | Outpatient (CLI) | payer MEDICARE | LOC: M.WC 09:49 | PROVIDERS: ATTEND Emergency Medicine Undersea and Hyperbaric Medicine | DX: L89.893 Pressure ulcer of other site, stage 3 (principal); L97.522 Non-pressure chronic ulcer of other part of left foot with fat layer exposed; L84 Corns and callosities; G90.09 Other idiopathic peripheral autonomic neuropathy; I10 Essential (primary) hypertension; I48.91 Unspecified atrial fibrillation; I73.89 Other specified peripheral vascular diseases; Z95.0 Presence of cardiac pacemaker; Z86.12 Personal history of poliomyelitis; Z87.891 Personal history of nicotine dependence ==

== ENCOUNTER → 2020-08-11 | Outpatient (CLI) | payer MEDICARE | LOC: M.WC 08:49 | PROVIDERS: ATTEND Emergency Medicine Undersea and Hyperbaric Medicine | DX: L89.893 Pressure ulcer of other site, stage 3 (principal); L97.522 Non-pressure chronic ulcer of other part of left foot with fat layer exposed; L84 Corns and callosities; G90.09 Other idiopathic peripheral autonomic neuropathy; I10 Essential (primary) hypertension; I48.91 Unspecified atrial fibrillation; I73.9 Peripheral vascular disease, unspecified; Z95.0 Presence of cardiac pacemaker; Z86.12 Personal history of poliomyelitis; Z87.891 Personal history of nicotine dependence ==

== ENCOUNTER → 2020-08-18 | Outpatient (CLI) | payer MEDICARE ==
--- NOTE | 2020-08-21 14:08 | PATH ---
[address] [address] PATHOLOGY RPT PROCEDURE Name: ROSA BRO Room: [facility]#: [id number] Admission: 08/18/20 Date of : 34 Discharge: Report #: [id number] Path Case #: [id number] LCA Accession Number: [id number] . 01 Material submitted: . foot - BONE BIOPSY LEFT FOOT WOUND. Modifiers: left . 01 Clinical history: . BONE BIOPSY LEFT FOOT WOUND . 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 (MAGDA:steven; 08/21/2020) QMS 08/21/2020 1012 Local . 02 Electronically signed: . Isac Smith MD, Pathologist NPI- [id number] . 01 Gross description: . The specimen is received in formalin, labeled "Schnieders, Rosa and biopsy left foot wound". It consists of a mills irregular firm bony tissue fragment measuring 0.6 x 0.5 x 0.5 cm. The specimen is entirely submitted in A1 following decalcification. (MRF; 08/19/2020) MFE/MFE 08/21/2020 1011 Local . 02 Pathologist provided ICD-10: M86.8X7 . 02 CPT . 799420, 415140 Specimen Comment: A courtesy copy of this report has been sent to [phone] Specimen Comment: Report sent to / DR PASTOR Performed at: [address], [place] [id number] MD Chinedu Abdullahi MD Phone: [phone] Performed at: 02 [facility] [address] , [place], [place] [id number] MD Isac Smith MD Phone: [phone]
== END ==
LOC: M.NUC 08-12 14:16
PROVIDERS: ATTEND Emergency Medicine Undersea and Hyperbaric Medicine
DX: L89.893 Pressure ulcer of other site, stage 3 (principal); L97.522 Non-pressure chronic ulcer of other part of left foot with fat layer exposed; L84 Corns and callosities; M86.172 Other acute osteomyelitis, left ankle and foot; I73.9 Peripheral vascular disease, unspecified; I10 Essential (primary) hypertension; I48.91 Unspecified atrial fibrillation; Z95.0 Presence of cardiac pacemaker; Z86.12 Personal history of poliomyelitis; Z87.891 Personal history of nicotine dependence

== ENCOUNTER → 2020-08-25 | Outpatient (CLI) | payer MEDICARE | LOC: M.WC 08-18 10:30 | PROVIDERS: ATTEND Emergency Medicine Undersea and Hyperbaric Medicine | DX: L89.893 Pressure ulcer of other site, stage 3 (principal); L97.526 Non-pressure chronic ulcer of other part of left foot with bone involvement without evidence of necrosis; L84 Corns and callosities; M86.172 Other acute osteomyelitis, left ankle and foot; I73.9 Peripheral vascular disease, unspecified; I10 Essential (primary) hypertension; I48.91 Unspecified atrial fibrillation; G90.09 Other idiopathic peripheral autonomic neuropathy; Z95.0 Presence of cardiac pacemaker; Z86.12 Personal history of poliomyelitis; Z87.891 Personal history of nicotine dependence ==

== ENCOUNTER → 2020-09-01 | Outpatient (CLI) | payer MEDICARE | LOC: M.WC 10:15 | PROVIDERS: ATTEND Emergency Medicine Undersea and Hyperbaric Medicine | DX: L89.893 Pressure ulcer of other site, stage 3 (principal); L97.526 Non-pressure chronic ulcer of other part of left foot with bone involvement without evidence of necrosis; L84 Corns and callosities; M86.172 Other acute osteomyelitis, left ankle and foot; I73.9 Peripheral vascular disease, unspecified; I10 Essential (primary) hypertension; I48.91 Unspecified atrial fibrillation; G90.09 Other idiopathic peripheral autonomic neuropathy; Z95.0 Presence of cardiac pacemaker; Z86.12 Personal history of poliomyelitis; Z87.891 Personal history of nicotine dependence ==

== ENCOUNTER → 2020-09-15 | Outpatient (CLI) | payer MEDICARE | LOC: M.WC 10:18 | PROVIDERS: ATTEND Emergency Medicine Undersea and Hyperbaric Medicine | DX: L89.893 Pressure ulcer of other site, stage 3 (principal); L97.526 Non-pressure chronic ulcer of other part of left foot with bone involvement without evidence of necrosis; L84 Corns and callosities; M86.172 Other acute osteomyelitis, left ankle and foot; I73.9 Peripheral vascular disease, unspecified; I10 Essential (primary) hypertension; I48.91 Unspecified atrial fibrillation; G90.09 Other idiopathic peripheral autonomic neuropathy; Z95.0 Presence of cardiac pacemaker; Z86.12 Personal history of poliomyelitis; Z87.891 Personal history of nicotine dependence ==

== ENCOUNTER 2020-09-22 11:06 | Inpatient (IN) | payer MEDICARE ==
[~2020-09-22] VITALS: Ht 162.6 cm; Wt 68.0 kg
[2020-09-22 11:22] VITALS: BP 148/87
[2020-09-22] MEDS ORDERED: PROLOPRIM100 MG PO (11:41)
[2020-09-22] MEDS ORDERED: XARELTO20 MG PO (11:42)
[2020-09-22] MEDS ORDERED: HYDROCHLOROTHIA25 M1 PO (11:43)
[2020-09-22] MEDS ORDERED: LIDOCAINE 2%2 %/5 GM (11:44)
[2020-09-22 12:16] LABS: ABSOLUTE BASOPHILS 0.1 thou/uL (0.0-0.2); ABSOLUTE EOSINOPHILS 0.1 thou/uL (0.0-0.7); ABSOLUTE LYMPHOCYTES 1.2 thou/uL (0.8-5.3); ABSOLUTE MONOCYTES 0.9 thou/uL (0.0-1.2); ABSOLUTE NEUTROPHILS 8.2 thou/uL (1.6-8.1); BASOPHILS 0.7 %; EOSINOPHILS 0.6 %; HEMATOCRIT 33.1 % (37.0-47.0); HEMOGLOBIN 10.8 gm/dL (12.0-15.0); LYMPHOCYTES 11.7 %; MCHC 32.5 g/dL (28.0-37.0); MCV 95.3 fL (80.0-100.0); MONOCYTES 8.8 %; MPV 8.4 fl. (7.2-11.1); NUCLEATED RBCS 0 /100WBC; PLATELET COUNT* 195 thou/uL (150-400); POLYS 78.2 %; RBC 3.48 mil/uL (4.20-5.00); RDW-CV 15.2 % (10.5-14.5); WBC 10.5 thou/uL (4.0-11.0)
[2020-09-22 12:36] LABS: CALCIUM 8.3 mg/dL (8.5-10.1); CREATININE 1.3 mg/dL (0.6-1.3)
[2020-09-22 12:40] LABS: ALBUMIN 3.8 g/dL (3.4-5.0); TOTAL BILIRUBIN 0.4 mg/dL (<0.1-1.0); TOTAL PROTEIN 7.6 g/dL (6.4-8.2)
--- NOTE | 2020-09-22 16:31 | 2DMMODE ---
[place] [address] 2 D/M-MODE ECHOCARDIOGRAM Name: LUIS ALBERTO BRO Room: [place] [address] ADM IN .R.#: [id number] Admission: 09/22/20 Attend Phys: Benji Gonzalez Discharge: Date of : 34 Date of Service: 09/22/20 1631 Report #: [id number] THIS REPORT FOR: cc: Madhavi Barton Maggie M. DO Liston, Michael J. MD [facility] ~ APPROVED REPORT Study performed: 09/22/2020 15:39:19 EXAM: Comprehensive 2D, Doppler, and color-flow Echocardiogram Patient Location: In-Patient Room #: er Status: routine BSA: 1.68 HR: 62 bpm BP: 157/55 mmHg Rhythm: NSR Other Information Study Quality: Good Indications Dyspnea 2D Dimensions IVSd: 12.21 (7-11mm) LVOT Diam: 19.55 (18-24mm) LVDd: 32.11 mm PWd: 9.43 (7-11mm) Ascending Ao: 28.50 (22-36mm) LVDs: 19.47 (25-40mm) Aortic Root: 27.55 mm Volumes Left Atrial Volume (Systole) LA ESV Index: 35.70 mL/m2 Aortic Valve AoV Peak Peter.: 1.59 m/s AO Peak Gr.: 10.10 mmHg LVOT Max P.02 mmHg AO Mean Gr.: 6.07 mmHg LVOT Mean P.11 mmHg LVOT Max V: 0.71 m/s AO V2 VTI: 36.54 cm LVOT Mean V: 0.49 m/s AMADOU (VTI): 1.25 cm2 LVOT V1 VTI: 15.17 [place] [address] 2 D/M-MODE ECHOCARDIOGRAM Name: LUIS ALBERTO BRO Room: [address] IN [facility]#: [id number] Admission: 09/22/20 Attend Phys: Benji Gonzalez Discharge: Date of : 34 Date of Service: 09/22/20 1631 Report #: [id number] Mitral Valve MV Decel. Time: 209.81 ms MV PHT: 60.84 ms MVA (PHT): 3.62 cm2 TDI Medial E' Peter.: 0.10 m/s Lateral E' Peter.: 0.12 m/s Pulmonary Valve PV Peak Peter.: 0.92 m/s PV Peak Gr.: 3.36 mmHg Tricuspid Valve RAP Estimate: 5.00 mmHg TR Peak Gr.: 29.63 mmHg RVSP: 34.00 mmHg PA Pressure: 34.00 mmHg Left Ventricle The left ventricle is normal size. There is normal LV segmental wall motion. There is normal left ventricular wall thickness. Left ventricular systolic function is normal. LVEF is 60-65%. This study is not technically sufficient to allow evaluation of the LV diastolic function. Right Ventricle Right ventricle is moderately dilated. The right ventricular systolic function is normal. Atria Left atrium is mildly dilated. Right atrium is moderately dilated. Aortic Valve Mild aortic valve sclerosis. No aortic regurgitation is present. Mild aortic stenosis. Mitral Valve The mitral valve is normal in structure. Trace mitral regurgitation. No evidence of mitral valve stenosis. Tricuspid Valve The tricuspid valve is normal in structure. Moderate tricuspid regurgitation. Mild pulmonary hypertension. The RVSP is 40-45 [place] [address] 2 D/M-MODE ECHOCARDIOGRAM Name: LUIS ALBERTO BRO Room: [address] IN [facility]#: [id number] Admission: 09/22/20 Attend Phys: Benji Gonzalez Discharge: Date of : 34 Date of Service: 09/22/20 1631 Report #: [id number] The pulmonary valve is normal in structure. There is no pulmonic valvular regurgitation. Great Vessels The aortic root is normal in size. IVC is normal in size and collapses >50% with inspiration. Pericardium There is no pericardial effusion. <Conclusion> Right ventricle is moderately dilated. Left atrium is mildly dilated. Right atrium is moderately dilated. Mild aortic valve sclerosis. Mild aortic stenosis. Trace mitral regurgitation. Moderate tricuspid regurgitation. Mild pulmonary hypertension. The RVSP is 40-45 mmHg. IVC is normal in size and collapses >50% with inspiration. <ELECTRONICALLY SIGNED> By: Benja Cardenas MD, FACC 09/22/20 1631 163 [id number] Benja Cardenas MD, FACC /INF
[2020-09-22 17:00] VITALS: BP 124/34
[2020-09-22 18:19] VITALS: BP 124/34
--- NOTE | 2020-09-22 19:06 | NUR ---
DAUGHTERS: DEENA ADAM- [phone] HIMA AMBROSIO- [phone] SON: ZEINAB BRO- [phone]
[2020-09-22 21:02] VITALS: BP 96/60
[2020-09-22 22:30] VITALS: BP 110/45
[2020-09-22 22:34] VITALS: BP 96/60
[2020-09-23] VITALS: BP 140/66
[2020-09-23 04:00] VITALS: BP 103/33
[2020-09-23 04:18] LABS: CALCIUM 8.1 mg/dL (8.5-10.1); CREATININE 1.5 mg/dL (0.6-1.3); POTASSIUM 3.6 mmol/L (3.5-5.1)
--- NOTE | 2020-09-23 06:17 | NUR ---
PATIENT UP FROM ER AT APPROX 2215. PT ALERT/ORIENTED BUT CONFUSED AND CONFUSION BECAME WORSE THROUGH THE NIGHT. PT ABLE TO ANSWER ASSESSMENT QUESTIONS AND WAS ORIENTED TO ROOM/POLICIES. PT DENIES PAIN/NAUSEA OR SOA. SATS REMAINED MID 90'S. FREQUENTLY USED ITEMS AND CALL LIGHT WITHIN REACH. SIDERAILS UPX3 AND BED ALARM ON. WILL CONTINUE TO MONITOR.
[2020-09-23 08:00] VITALS: BP 141/53
--- NOTE | 2020-09-23 10:05 | EKG ---
[place] [address] ELECTROCARDIOGRAM REPORT Name: LUIS ALBERTO BRO Room: [address] ADM IN .R.#: [id number] Admission: 09/22/20 Attend Phys: Benji Gonzalez Discharge: Date of : 34 Date of Service: 09/22/20 1218 Report #: [id number] THIS REPORT FOR: //name// [facility] ED Test Date: 2020-09-22 Test Time: 12:18:55 Pat Name: LUIS ALBERTO BRO Department: Room: [facility] Gender: F Technical Analyst: HARVEY : 1930 Requested By: Kathy Curtis Order Number: [id number] MD: Delfino Cueto Measurements Intervals [place] Rate: 62 P: 0 OR: 69 QRS: -28 QRSD: 122 T: 131 QT: 454 QTc: 461 Interpretive Statements Ventricular-paced complexes with pvc No further analysis attempted due to paced rhythm Compared to ECG 08/12/2014 08:45:53 no change Electronically Signed On 09-23-2020 10:05:28 CDT by Delfino Cueto [email or web address] <ELECTRONICALLY SIGNED> By: Delfino Cueto MD, FACC 09/23/20 1005 1218 1218 Delfino Cueto MD, FAC /EPI
[2020-09-23 12:00] VITALS: BP 158/54
--- NOTE | 2020-09-23 12:53 | NUR ---
Pt is A&O. Resides at [facility]. Pt is independent with ADLs, Pt has 6 dtrs that provide transportation. Pt is wc bound, but able to stand and pivot for transfers. No home o2. No hx of HH or SNF. Per Pt, she does not anticipate and dc needs, Pt declined HH.
[2020-09-23 16:00] VITALS: BP 149/51
[2020-09-23 20:00] VITALS: BP 128/53
[2020-09-24] VITALS (7 sets, daily range): BP systolic 103–170; BP diastolic 27–89
--- NOTE | 2020-09-24 08:47 | NUR ---
Nutrition: Pt admitted with SOB, PNA. Consult received for wound on Lt foot. H/o partial Lt foot amputation. Wt: 150#. PMHx: polio, peripheral neuropathy. Pt is wheelchair bound. Heart Healthy diet. Labs: BUN 34, cr 1.5, albumin 3.8. No nutrition interventions needed at this time. GOALS: >75% of meals consumed, good HBV protein at meals, good hydration. Consider mild risk.
[2020-09-24] MEDS ORDERED: CEFDINIR300 MG PO (10:36)
--- NOTE | 2020-09-24 12:30 | NUR ---
Pt can dc home today with HH pending PT eval. [facility], family is concerned about Pt being home alone, Pt appears to have dementia. Family has been speaking with Vira at [facility] about LTC placement, unsure when they will move her. CM to fax HH orders to [facility], if plan continues to be a home dc.
--- NOTE | 2020-09-24 14:56 | NUR ---
PT KNOWN TO THIS NURSE FROM OUT PATIENT WOUND CENTER. DRESSING CHANGED IN WOUND CENTER THIS PAST Monday09/22/20 CONTUATION OF CARE PATIENT SEEN TODAY FOR DRESSING CHANGE. OLD DRESSING REMOVED AND WOUND CLEANSED WITH SAOP AND WATER. PICTURE TAKEN AND PLACED IN CHART. WOUND TO LEFT FOOT NOTED TO MEASURE 2 x 1.5 x 0.6 NEW DRESSING APPLIED PER ORDERS. PATIENT TOLERATED WELL AND RATED PAIN AT 0 OUT 10. DAUGHTER AT BEDSIDE. EDUCATION ON OFFLOADING AND DRESSING/WOUND CARE COMPLETED. BOTH VOICE UNDERSTANDING AND AGREE WITH CURRENT TREATMENT AND PLAN.
[2020-09-25] VITALS: BP 184/57
[2020-09-25 04:00] VITALS: BP 179/64
--- NOTE | 2020-09-25 04:57 | NUR ---
PT A&O X 2-3, FORGETFUL. ON RA. BP HIGH. NO C/O PAIN. DRESSING TO LT FOOT C/D/I. PT INCONTINENT. PUREWICK APPLIED. BED ALARM ON FOR SAFETY. CALL LIGHT WITHIN REACH. WILL CONTINUE TO MONITOR.
[2020-09-25 08:20] VITALS: BP 137/58
[2020-09-25 12:00] VITALS: BP 144/59
--- NOTE | 2020-09-25 14:21 | NUR ---
ORDERS NOTED FOR OKAY TO D/C TO LONG TERM THIS SHIFT PER - CM HERE TO ARRANGE FOR PT TO D/C TO [facility] PER W/C VAN AROUND [phone]- DAUGHTER HAS BEEN UPDATED PER CM- IV TO LEFT WRIST D/C'D ALONG WITH [employer] HOUSEKEEPER PRIOR TO D/C- REPORT CALLED TO SHEREEN HARPER AT [facility] AT 1150 WITH ALL QUESTIONS AND CONCERNS ADDRESSED- BELONGINGS PACKED AND ACCOUNTED FOR PER TECH- PAPERWORK PREPARED FOR D/C TO TRANSFER TO FACILITY- PT READY FOR D/C- CALL LIGHT AND PERSONAL BELONGINGS WITH IN REACH- ALL NEEDS MET AT THIS TIME
== END 2020-09-25 14:44 | DRG 177 ==
LOC: M.2W 13:01 → M.TBA-ER 13:01 → M.2W 23:04
PROVIDERS: Nurse Practitioner Family; Registered Nurse; ADMIT Internal Medicine; ATTEND Internal Medicine
DX: J69.0 Pneumonitis due to inhalation of food and vomit (principal); I50.31 Acute diastolic (congestive) heart failure; I13.0 Hypertensive heart and chronic kidney disease with heart failure and stage 1 through stage 4 chronic kidney disease, or unspecified chronic kidney disease; D68.59 Other primary thrombophilia; J12.9 Viral pneumonia, unspecified; I48.0 Paroxysmal atrial fibrillation; Z20.822 Contact with and (suspected) exposure to COVID-19; G62.9 Polyneuropathy, unspecified; H72.91 Unspecified perforation of tympanic membrane, right ear; N18.30 Chronic kidney disease, stage 3 unspecified; T50.1X5A Adverse effect of loop [high-ceiling] diuretics, initial encounter; K21.9 Gastro-esophageal reflux disease without esophagitis; Z95.0 Presence of cardiac pacemaker; Z86.12 Personal history of poliomyelitis; Z86.14 Personal history of Methicillin resistant Staphylococcus aureus infection; Z79.899 Other long term (current) drug therapy; Z89.432 Acquired absence of left foot; Z87.891 Personal history of nicotine dependence; Z79.01 Long term (current) use of anticoagulants; Y92.89 Other specified places as the place of occurrence of the external cause